=== PATIENT | male | born 1980 | race American Indian/Alaskan Native ===

== ENCOUNTER 2019-06-02 14:47 | Emergency (ER) | payer MEDICAID ==
[2019-06-02 15:20] LABS: Basophils # (Auto) 0.1 K/mm3 (0.0-0.1); Basophils % (Auto) 1.7 % (0.0-1.8); Eosinophils # (Auto) 0.1 K/mm3 (0.0-0.4); Eosinophils % (Auto) 2.7 % (0.0-4.3); Hematocrit 42.5 % (35.5-45.6); Hemoglobin 13.7 gm/dl (11.8-15.2); Lymphocytes % (Auto) 49.7 % (13.4-35.0); Mean Corpuscular HGB Conc 32 % (32-34); Mean Corpuscular Volume 78 fl (84-94); Monocytes # (Auto) 0.3 K/mm3 (0.0-0.8); Monocytes % (Auto) 7.4 % (0.0-7.3); Platelet Count 144 K/mm3 (140-440); Red Blood Count 5.45 M/mm3 (3.65-5.03); Red Cell Distribution Width 16.1 % (13.2-15.2)
[2019-06-02] MEDS ORDERED: HYDROmorphone 2 MG/1 ML INJ IV ONE (15:25)
[2019-06-02 15:39] LABS: BUN/Creatinine Ratio 13; Blood Urea Nitrogen 13 mg/dL (9-20); Calcium 8.6 mg/dL (8.4-10.2); Hemolysis Index 9
--- NOTE | 2019-06-02 15:46 | Emergency Department Report ---
ED Male HPI - General Chief complaint: Sickle Cell Crisis Stated complaint: SICKLE CELL CRISIS Time Seen by Provider: 06/02/19 15:00 Source: patient, EMS Mode of arrival: Stretcher Limitations: No Limitations - History of Present Illness Initial comments: 38-year-old male reports history of sickle cell anemia, presents to ED with priapism. Patient reports many episodes of priapism in the past, the last of which was about a week ago. He reports he had to have it drained at that time. Patient denies any other pain. States he has had an erection since 9 AM this morning. Patient denies taking any other medications, including psychiatric medications or erectile dysfunction medications. MD Complaint: other (priapism) -: This morning Location: penis Radiation: none Severity: severe Quality: aching Consistency: constant Improves with: none Worsens with: none denies other symptoms - Related Data Previous Rx's Medication Instructions Recorded Last Taken Type Acetaminophen [Non-Aspirin Extra 500 mg PO Q6HR PRN #30 tablet 05/22/19 Unknown Rx Strength] traMADol [Ultram 50 MG tab] 50 mg PO Q6HR PRN #9 tablet 05/22/19 Unknown Rx Allergies Allergy/AdvReac Type Severity Reaction Status Date / Time No Known Allergies Allergy Unverified 05/21/19 23:27 ED Review of Systems ROS: Stated complaint: SICKLE CELL CRISIS Other details as noted in HPI Comment: All other systems reviewed and negative Genitourinary: other (reports priapism) ED Past Medical Hx - Past Medical History Previous Medical History?: Yes Hx Sickle Cell Disease: Yes (priapism) Hx Asthma: Yes Additional medical history: Bronchitis - Surgical History Past Surgical History?: No - Social History Smoking Status: Never Smoker Substance Use Type: Alcohol - Medications Home Medications: Home Medications Medication Instructions Recorded Confirmed Last Taken Type Acetaminophen [Non-Aspirin Extra 500 mg PO Q6HR PRN #30 tablet 05/22/19 Unknown Rx Strength] traMADol [Ultram 50 MG tab] 50 mg PO Q6HR PRN #9 tablet 05/22/19 Unknown Rx ED Physical Exam - General Limitations: No Limitations General appearance: alert, in no apparent distress - Head Head exam: Present: atraumatic, normocephalic - Eye Eye exam: Present: normal appearance, EOMI - ENT ENT exam: Present: mucous membranes moist - Neck Neck exam: Present: normal inspection - Respiratory Respiratory exam: Present: normal lung sounds bilaterally. Absent: respiratory distress - Cardiovascular Cardiovascular Exam: Present: regular rate, normal rhythm - GI/Abdominal GI/Abdominal exam: Present: soft. Absent: distended, tenderness - Extremities Exam Extremities exam: Present: other (penile priapism present) - Neurological Exam Neurological exam: Present: alert, oriented X3 - Psychiatric Psychiatric exam: Present: normal affect, normal mood - Skin Skin exam: Present: warm, dry, intact, normal color ED Course Vital Signs 06/02/19 06/02/19 06/02/19 14:48 14:54 15:00 Temperature 98.8 F Pulse Rate 66 64 Respiratory 10 L 17 Rate Blood Pressure 152/106 141/101 O2 Sat by Pulse 100 99 98 Oximetry 06/02/19 06/02/19 06/02/19 15:05 15:16 15:30 Temperature Pulse Rate 66 53 L Respiratory 10 L 19 12 Rate Blood Pressure 152/106 141/94 O2 Sat by Pulse 100 97 98 Oximetry 06/02/19 06/02/19 06/02/19 15:46 16:00 16:16 Temperature Pulse Rate 57 L 61 63 Respiratory 18 16 17 Rate Blood Pressure 141/94 138/95 138/95 O2 Sat by Pulse 95 92 97 Oximetry 06/02/19 06/02/19 06/02/19 16:30 16:46 17:00 Temperature Pulse Rate 62 67 58 L Respiratory 16 14 13 Rate Blood Pressure 130/98 130/98 117/87 O2 Sat by Pulse 93 95 96 Oximetry 06/02/19 06/02/19 17:16 17:30 Temperature Pulse Rate 70 Respiratory 17 Rate Blood Pressure 117/87 117/87 O2 Sat by Pulse 94 Oximetry - Reevaluation(s) Reevaluation #1: 06/02/19 16:57 Corpora cavernosa aspirated. 45 cc of blood removed. 1 mL of phenylephrine solution injected. Dehumescence achieved. Reevaluation #2: 06/02/19 17:35 Pt remains in dehumesced state. Feeling much better. Will d/c at this time. - Penile Procedure Consent Obtained: verbal consent Time Out Performed: Yes Indication: priapism management Procedural Sedation: No Sedation/Analgesia: opioids (dilaudid 2 mg) Local Anesthesia Used: Lidocaine 1% without EPI Amount of Anesthesia Used (mls): 5 Priapism Management: aspiration (45 cc of blood), phenylephrine injection (1 ml of phenylephrine solution) Complications: none Patient Tolerated Procedure: well ED Medical Decision Making - Lab Data Result diagrams: 06/02/19 15:05 06/02/19 15:05 - Medical Decision Making Likely does not have sickle cell. Hb and retic count are both normal. Pt states he was diagnosed with sickle cell anemia 5 yrs ago when he experienced 1st episode of priapism. Has never required transfusions in the past. No other pain crises. Pt denies use of any other medications that might explain his priapism. Priapism currently resolved w/ aspiration and phenylephrine injection. Pt advised to avoid erectile dysfucntion meds and any antipsychotics that are not prescribed to him. Urology follow-up given. Will d/c at this time. - Differential Diagnosis priapism Critical Care Time: Yes Critical care time in (mins) excluding proc time.: 35 Critical care attestation.: If time is entered above; I have spent that time in minutes in the direct care of this critically ill patient, excluding procedure time. Critical Care Time: 35 minutes ED Disposition Clinical Impression: Priapism Disposition: DC-01 TO HOME OR SELFCARE Is pt being admited?: No Condition: Stable Instructions: Priapism (ED) Referrals: RONNIE BRUCE MD [Staff Physician] - 3-5 Days Time of Disposition: 17:36
[2019-06-02] MEDS ORDERED: PHENYLEPHRINE 1 MG, SODIUM CHLORIDE P/F VIAL 10 ML 9.9 ML IJ**NOT IV ONE (16:00)
[2019-06-02] MEDS ORDERED: LIDOCAINE (1%) 10 MG/1 ML VIAL 20 ML MDV ONE (16:08)
[2019-06-02 17:29] VITALS: BP 117/87
== END 2019-06-02 17:37 | disposition home or self-care (01) ==
LOC: ED 14:47
DX: N48.30 Priapism, unspecified (principal); J45.909 Unspecified asthma, uncomplicated
CPT/HCPCS: 36415; 54220; 80048; 85025; 85045; 96374; 99283; J1170; J2370

== ENCOUNTER 2019-06-04 16:08 | Emergency (ER) | payer MEDICAID ==
[2019-06-04] MEDS ORDERED: SODIUM CHLORIDE 0.9% 1000 ML 1,000 ML IV ONE (16:47)
[2019-06-04] MEDS ORDERED: diphenhydrAMINE 50 MG/ML VIAL IV ONE ×2 (16:47→18:00)
[2019-06-04] MEDS ORDERED: FAMOTIDINE 20 MG/2 ML INJ IV ONE ×2 (16:47→18:00)
[2019-06-04] MEDS ORDERED: methylPREDNISolone Sod Succinate 125 MG/2 ML INJ IV ONE ×2 (16:47→18:00)
--- NOTE | 2019-06-04 16:52 | Emergency Department Report ---
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 Patient presented to the ER with chief complaint of bee sting to the right upper lip. Patient presented with swelling and diffuse hives. Patient denied any difficulty swallowing or difficulty breathing. No stridor. MD Complaint: allergic reaction, hives, facial swelling -: Sudden Exposure: insect bite Symptoms: itching, facial swelling, lip swelling. denies: difficulty swallowing, difficulty breathing, orolingual swelling, hoarseness, syncopy, dizziness, nausea, vomiting Severity: moderate Treatment Prior to Arrival: benadryl Previous Allergy History: prior ED visit(s), anaphylaxis - Related Data Previous Rx's Medication Instructions Recorded Last Taken Type Acetaminophen [Non-Aspirin Extra 500 mg PO Q6HR PRN #30 tablet 05/22/19 Unknown Rx Strength] traMADol [Ultram 50 MG tab] 50 mg PO Q6HR PRN #9 tablet 05/22/19 Unknown Rx Allergies Allergy/AdvReac Type Severity Reaction Status Date / Time No Known Allergies Allergy Unverified 05/21/19 23:27 ED Review of Systems ROS: Stated complaint: PAIN IN PRIVATE AREA Other details as noted in HPI Comment: All other systems reviewed and negative Constitutional: denies: chills, fever Respiratory: denies: cough, orthopnea, shortness of breath, SOB with exertion, SOB at rest, wheezing Cardiovascular: denies: chest pain, palpitations Gastrointestinal: denies: abdominal pain, nausea, vomiting, diarrhea, constipation, hematemesis, melena, hematochezia Musculoskeletal: denies: back pain Neurological: denies: headache, weakness ED Past Medical Hx - Past Medical History Hx Sickle Cell Disease: Yes (priapism) Hx Asthma: Yes Additional medical history: Bronchitis - Surgical History Past Surgical History?: No - Social History Smoking Status: Current Every Day Smoker Substance Use Type: Alcohol - Medications Home Medications: Home Medications Medication Instructions Recorded Confirmed Last Taken Type Acetaminophen [Non-Aspirin Extra 500 mg PO Q6HR PRN #30 tablet 05/22/19 Unknown Rx Strength] traMADol [Ultram 50 MG tab] 50 mg PO Q6HR PRN #9 tablet 05/22/19 Unknown Rx ED Physical Exam - General Limitations: No Limitations General appearance: alert, in no apparent distress, anxious - Head Head exam: Present: atraumatic, normocephalic, normal inspection - Eye Eye exam: Present: normal appearance Pupils: Present: normal accommodation - ENT ENT exam: Present: other (right side of the upper lip swelling.) - Neck Neck exam: Absent: tenderness, meningismus - Respiratory Respiratory exam: Present: normal lung sounds bilaterally. Absent: respiratory distress, wheezes, rales - Cardiovascular Cardiovascular Exam: Present: regular rate, normal rhythm, normal heart sounds - GI/Abdominal GI/Abdominal exam: Present: soft. Absent: distended, tenderness, guarding, rebound, rigid - Extremities Exam Extremities exam: Present: full ROM, normal capillary refill. Absent: tenderness - Neurological Exam Neurological exam: Present: alert, oriented X3, CN II-XII intact - Skin Skin exam: Present: warm, dry, intact, rash, other (micropapular rash) ED Course Vital Signs 06/04/19 16:13 Temperature 97.6 F Pulse Rate 84 Respiratory 18 Rate Blood Pressure 150/102 O2 Sat by Pulse 100 Oximetry Critical care attestation.: If time is entered above; I have spent that time in minutes in the direct care of this critically ill patient, excluding procedure time. ED Disposition Clinical Impression: Allergic reaction Disposition: DC-01 TO HOME OR SELFCARE Is pt being admited?: No Condition: Stable Instructions: Insect Bite or Sting (ED) Referrals: [facility] [Provider Group] - 3-5 Days
[2019-06-04 17:04] LABS: Basophils # (Auto) 0.1 K/mm3 (0.0-0.1); Eosinophils # (Auto) 0.1 K/mm3 (0.0-0.4); Eosinophils % (Auto) 2.3 % (0.0-4.3); Hematocrit 43.1 % (35.5-45.6); Hemoglobin 14.3 gm/dl (11.8-15.2); Lymphocytes # (Auto) 2.5 K/mm3 (1.2-5.4); Lymphocytes % (Auto) 47.7 % (13.4-35.0); Mean Corpuscular HGB Conc 33 % (32-34); Mean Corpuscular Volume 77 fl (84-94); Monocytes # (Auto) 0.4 K/mm3 (0.0-0.8); Monocytes % (Auto) 7.2 % (0.0-7.3); Platelet Count 159 K/mm3 (140-440); Red Blood Count 5.62 M/mm3 (3.65-5.03)
[2019-06-04 17:25] LABS: BUN/Creatinine Ratio 14; Blood Urea Nitrogen 13 mg/dL (9-20); Calcium 9.2 mg/dL (8.4-10.2); Hemolysis Index 5
[2019-06-04] MEDS ORDERED: HYDROmorphone 1 MG/1 ML INJ IV ONE ×2 (17:25→17:27)
[2019-06-04] MEDS: SODIUM CHLORIDE 0.9% 1000 ML 1,000 ML IV ONE ×2 (17:25→18:46)
[2019-06-04] MEDS ORDERED: LIDOCAINE (2%) 20 MG/1 ML VIAL 20 ML MDV INFILTRATI ONE (17:26)
[2019-06-04] MEDS ORDERED: ONDANSETRON 4 MG/2 ML INJ IV ONE (17:27)
--- NOTE | 2019-06-04 17:27 | Emergency Department Report ---
ED Male HPI - General Chief complaint: Urogenital-Male Stated complaint: PAIN IN PRIVATE AREA Time Seen by Provider: 06/04/19 16:44 Source: patient Mode of arrival: Ambulatory Limitations: No Limitations - History of Present Illness Initial comments: Patient is 38 years old male with history of previous priapism multiple times. Patient was seen here a few days ago for the same problem aspirated . She stated that his symptoms started this morning when he wakeup at 8 AM. Patient denied any other symptoms. Patient immediately given Dilaudid and Zofran. Patient immediately prepared for aspiration. 75 mL of dark blood aspirated from patient penis. This and he stated that he feeling much better. He also stated that he feels he is back to his baseline. MD Complaint: other (priapism) -: This morning Location: penis Radiation: none Severity: moderate - Related Data Previous Rx's Medication Instructions Recorded Last Taken Type Acetaminophen [Non-Aspirin Extra 500 mg PO Q6HR PRN #30 tablet 05/22/19 Unknown Rx Strength] traMADol [Ultram 50 MG tab] 50 mg PO Q6HR PRN #9 tablet 05/22/19 Unknown Rx Allergies Allergy/AdvReac Type Severity Reaction Status Date / Time No Known Allergies Allergy Unverified 05/21/19 23:27 ED Review of Systems ROS: Stated complaint: PAIN IN PRIVATE AREA Other details as noted in HPI Comment: All other systems reviewed and negative Constitutional: denies: chills, fever Respiratory: denies: cough, shortness of breath, SOB with exertion Cardiovascular: denies: chest pain, palpitations Gastrointestinal: denies: abdominal pain, nausea, vomiting Musculoskeletal: denies: back pain Neurological: denies: headache, weakness ED Past Medical Hx - Past Medical History Hx Sickle Cell Disease: Yes (priapism) Hx Asthma: Yes Additional medical history: Bronchitis - Surgical History Past Surgical History?: No - Social History Smoking Status: Current Every Day Smoker Substance Use Type: Alcohol - Medications Home Medications: Home Medications Medication Instructions Recorded Confirmed Last Taken Type Acetaminophen [Non-Aspirin Extra 500 mg PO Q6HR PRN #30 tablet 05/22/19 Unknown Rx Strength] traMADol [Ultram 50 MG tab] 50 mg PO Q6HR PRN #9 tablet 05/22/19 Unknown Rx ED Physical Exam - General Limitations: No Limitations General appearance: alert, in no apparent distress - Head Head exam: Present: atraumatic, normocephalic, normal inspection - ENT ENT exam: Present: normal exam, normal orophraynx, mucous membranes moist - Neck Neck exam: Present: normal inspection, full ROM. Absent: tenderness, meningismus, lymphadenopathy, thyromegaly - Respiratory Respiratory exam: Present: normal lung sounds bilaterally - Cardiovascular Cardiovascular Exam: Present: regular rate, normal rhythm, normal heart sounds - GI/Abdominal GI/Abdominal exam: Present: soft. Absent: distended, tenderness, guarding, rebound, rigid - exam: Present: other (priapism) ED Course Vital Signs 06/04/19 06/04/19 06/04/19 16:13 17:41 19:05 Temperature 97.6 F 97.8 F Pulse Rate 84 73 Respiratory 18 18 18 Rate Blood Pressure 150/102 Blood Pressure 120/87 [Right] O2 Sat by Pulse 100 99 Oximetry - Procedure Description Procedures done: Under aseptic technique, the area is cleaned and draped. Dark blood aspirated using 18 G needle. 75 ml asp ED Medical Decision Making - Lab Data Result diagrams: 06/04/19 16:54 06/04/19 16:54 - Medical Decision Making Patient is 38 years old male with history of previous priapism multiple times. Patient was seen here a few days ago for the same problem aspirated . She stated that his symptoms started this morning when he wakeup at 8 AM. Patient denied any other symptoms. Patient immediately given Dilaudid and Zofran. Patient immediately prepared for aspiration. 75 mL of dark blood aspirated from patient penis. This and he stated that he feeling much better. He also stated that he feels he is back to his baseline. Critical care attestation.: If time is entered above; I have spent that time in minutes in the direct care of this critically ill patient, excluding procedure time. ED Disposition Clinical Impression: Priapism Disposition: DC-01 TO HOME OR SELFCARE Is pt being admited?: No Condition: Stable Instructions: Priapism (ED) Referrals: [facility] [Provider Group] - 3-5 Days
[2019-06-04] MEDS ORDERED: PHENYLEPHRINE 1 MG, SODIUM CHLORIDE P/F VIAL 10 ML 9.9 ML IJ**NOT IV ONE (17:34)
[2019-06-04 20:14] VITALS: BP 120/87
== END 2019-06-04 20:36 | disposition home or self-care (01) ==
LOC: ED 16:08
DX: N48.30 Priapism, unspecified (principal); J45.909 Unspecified asthma, uncomplicated; F17.200 Nicotine dependence, unspecified, uncomplicated; Z79.899 Other long term (current) drug therapy
CPT/HCPCS: 36415; 54220; 80048; 85025; 96374; 96375; 96376; 99283; J1170; J1200; J2405; J2930; J7030

== ENCOUNTER 2019-06-07 16:31 | Emergency (ER) | payer SELFPAY ==
[2019-06-07] MEDS ORDERED: NACL 0.9% 1000 ML 1,000 ML IV ONE (18:12)
[2019-06-07] MEDS ORDERED: ZOFRAN IV ONE (18:12)
[2019-06-07] MEDS ORDERED: MORPHINE IV ONE ×2 (18:12→19:40)
[2019-06-07] MEDS ORDERED: XYLOCAINE 1% 20 mL INFILTRATI ONE (18:12)
[2019-06-07 19:19] VITALS: BP 126/86
[2019-06-07] MEDS ORDERED: NEO-SYNEPHRINE 1 MG, NACL P/F VIAL (10 ML) 9.9 ML IJ**NOT IV ONE (20:46)
[2019-06-07] MEDS ORDERED: NEO SYNEPHRINE 1 MG in NACL 0.9% 9.9 ML IV ONE (21:00)
--- NOTE | 2019-06-07 22:18 | Emergency Department Report ---
ED General Adult HPI - General Chief complaint: Urogenital-Male Stated complaint: PRIAPISM Time Seen by Provider: 06/07/19 17:24 Source: patient Mode of arrival: Ambulatory Limitations: No Limitations - History of Present Illness Initial comments: The patient presents to the emergency department with a chief complaint priapism. Patient states he does have multiple priapism's in the past that have resulted in drainage. Patient states he has had 3 or 4 priapism's in the last month. Patient denies any psychotropic medication use or sickle cell disease. -: Sudden Location: genitals Radiation: non-radiation Severity scale (0 -10): 7 Quality: aching Consistency: constant Improves with: none Worsens with: none Associated Symptoms: denies other symptoms Treatments Prior to Arrival: none - Related Data Previous Rx's Medication Instructions Recorded Last Taken Type Acetaminophen [Non-Aspirin Extra 500 mg PO Q6HR PRN #30 tablet 05/22/19 Unknown Rx Strength] traMADol [Ultram 50 MG tab] 50 mg PO Q6HR PRN #9 tablet 05/22/19 Unknown Rx Ibuprofen [Motrin] 800 mg PO Q8HR PRN #30 tablet 06/07/19 Unknown Rx Allergies Allergy/AdvReac Type Severity Reaction Status Date / Time No Known Allergies Allergy Unverified 05/21/19 23:27 ED Review of Systems ROS: Stated complaint: PRIAPISM Other details as noted in HPI Comment: All other systems reviewed and negative Constitutional: denies: chills, fever Eyes: denies: eye pain, eye discharge, vision change ENT: denies: ear pain, throat pain Respiratory: denies: cough, shortness of breath, wheezing Cardiovascular: denies: chest pain, palpitations Endocrine: no symptoms reported Gastrointestinal: denies: abdominal pain, nausea, diarrhea Genitourinary: other (priapism). denies: urgency, dysuria Musculoskeletal: denies: back pain, joint swelling, arthralgia Skin: denies: rash, lesions Neurological: denies: headache, weakness, paresthesias Psychiatric: denies: anxiety, depression Hematological/Lymphatic: denies: easy bleeding, easy bruising ED Past Medical Hx - Past Medical History Previous Medical History?: Yes Hx Sickle Cell Disease: Yes (priapism) Hx Asthma: Yes Additional medical history: Bronchitis - Surgical History Past Surgical History?: No - Social History Smoking Status: Current Every Day Smoker Substance Use Type: Alcohol - Medications Home Medications: Home Medications Medication Instructions Recorded Confirmed Last Taken Type Acetaminophen [Non-Aspirin Extra 500 mg PO Q6HR PRN #30 tablet 05/22/19 Unknown Rx Strength] traMADol [Ultram 50 MG tab] 50 mg PO Q6HR PRN #9 tablet 05/22/19 Unknown Rx Ibuprofen [Motrin] 800 mg PO Q8HR PRN #30 tablet 06/07/19 Unknown Rx ED Physical Exam - General Limitations: No Limitations General appearance: alert, in no apparent distress - Head Head exam: Present: atraumatic, normocephalic - Eye Eye exam: Present: normal appearance, PERRL, EOMI - ENT ENT exam: Present: mucous membranes moist - Neck Neck exam: Present: normal inspection - Respiratory Respiratory exam: Present: normal lung sounds bilaterally. Absent: respiratory distress - Cardiovascular Cardiovascular Exam: Present: regular rate, normal rhythm. Absent: systolic murmur, diastolic murmur, rubs, gallop - GI/Abdominal GI/Abdominal exam: Present: soft, normal bowel sounds. Absent: distended, tenderness - Rectal Rectal exam: Present: deferred - exam: Present: other (priapism) - Extremities Exam Extremities exam: Present: normal inspection - Back Exam Back exam: Present: normal inspection - Neurological Exam Neurological exam: Present: alert, oriented X3 - Psychiatric Psychiatric exam: Present: normal affect, normal mood - Skin Skin exam: Present: warm, dry, intact, normal color. Absent: rash ED Course Vital Signs 06/07/19 06/07/19 06/07/19 16:40 16:41 16:42 Temperature 97.7 F Pulse Rate 90 95 H 99 H Respiratory 18 18 Rate Blood Pressure 126/85 Blood Pressure [Left] O2 Sat by Pulse 99 99 99 Oximetry 06/07/19 19:00 Temperature Pulse Rate 73 Respiratory 16 Rate Blood Pressure Blood Pressure 126/86 [Left] O2 Sat by Pulse 98 Oximetry - Procedure Description Procedures done: Aspiration of the aspiration of the Corpus Cavernosum. Plan number block was done with 1% lidocaine. Sterile procedure was used prior to injection of lidocaine. Aspiration sites were located at 2 and 10:00 with aspiration of 50 mL of blood. After aspiration Intracavernosum injection of phenylephrine was done. Vision had complete resolution of his priapism Critical care attestation.: If time is entered above; I have spent that time in minutes in the direct care of this critically ill patient, excluding procedure time. ED Disposition Clinical Impression: Priapism Disposition: - TO HOME OR SELFCARE Is pt being admited?: No Does the pt Need Aspirin: No Condition: Stable Instructions: Priapism (ED) Additional Instructions: return if worse Prescriptions: Ibuprofen [Motrin] 800 mg PO Q8HR PRN #30 tablet PRN Reason: Pain Referrals: PRIMARY CAREMD [Primary Care Provider] - 3-5 Days GRADY RADFORD MD [Referring] - 3-5 Days Time of Disposition: 22:26
== END 2019-06-07 22:46 | disposition home or self-care (01) ==
LOC: ED 16:31
DX: N48.30 Priapism, unspecified (principal); F17.200 Nicotine dependence, unspecified, uncomplicated; J45.909 Unspecified asthma, uncomplicated; Z79.899 Other long term (current) drug therapy
CPT/HCPCS: 54220; 96374; 96375; 96376; 99282; J2270; J2370; J2405; J7030